=== PATIENT | female | born 1985 | race Caucasian/White ===

== ENCOUNTER 2024-06-14 11:01 | Emergency (ER) | payer BC, SELFPAY ==
[2024-06-14 11:10] VITALS: BP 111/72
[2024-06-14 12:19] VITALS: BP 114/78
--- NOTE | 2024-06-14 12:48 | ED.GENMED ---
History of Present Illness
General
Chief Complaint: Problems
Source: patient
Time Seen by Provider: 06/14/24 12:36
History of Present Illness
History of Present Illness:
39-year-old female presents to the emergency room for evaluation of vaginal spotting and bleeding as well as pelvic cramping. Patient had the symptoms yesterday the day before. Today she has not experienced any bleeding or cramping but did have
some pain in her left shoulder. No dizziness. No significant abdominal pain at this time. No nausea or vomiting. Patient is G2, P1. Uncomplicated first . Patient believes her blood type is B+
Phy Exam
Physical Exam
Physical Exam:
General: Awake, Alert, Oriented X3. No acute distress.
Vitals: unremarkable
Head: Atraumatic
Eyes: Pupils equal, EOMI
Throat: Airway intact, no exudates
Neck: Trachea midline
Lungs: Clear and equal b/l
Heart: Regular rate, no murmurs
Abd: Soft, Nontender, No pulsatile mass
Neuro: Nonfocal
Skin: Warm, dry, no rash
Extremities: pulses equal b/l, no edema
Course
Orders/Labs/Results
Orders:
Orders
06/14/24 11:19
EKG [Electrocardiogram (*1)] Urgent
Reason for Study: Other
Other Reason for Exam: L shoulder pain
EKG- Treatment ONCE
06/14/24 12:46
US W Transvaginal Urgent
Reason For Exam: bleeding/crampy 6 weeks by dates
06/14/24 13:04
Type+Screen Urgent
BBK Wristband Number:
Beta HCG Quantitative Urgent
Is this a screen?: No
Vital Signs
Initial and Last Documented VS:
Initial Vital Signs
Temp Pulse Resp BP Pulse Ox
98.6 F 84 18 111/72 100
06/14/24 11:10 06/14/24 11:10 06/14/24 11:10 06/14/24 11:10 06/14/24 11:10
Last Documented Vital Signs
Temp Pulse Resp BP Pulse Ox
98.6 F 72 16 114/78 98
06/14/24 11:10 06/14/24 12:19 06/14/24 12:19 06/14/24 12:19 06/14/24 12:19
Information
Weeks gestation: Weeks:
Location: Location: (empty uterus)
MDM/Problems Addressed
Differential Diagnosis Includes:
Ectopic, spontaneous , incomplete , normal IUP
MDM/Problems Addressed:
Patient has a benign abdominal exam. Ultrasound showed an empty uterus. The patient's quantitative hCG is 7. There was no indirect evidence for an ectopic on ultrasound. Given her very low hCG I think this is almost certainly completed
spontaneous . Patient is stable for discharge. 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
*Radiology
Radiology exam reviewed: radiology read reviewed
*Critical Care Note
Total Time (30-74mins, 75-104mins- exclusive of procedures): Not Applicable
ED Attending Note
-
Portions of this chart may have been created with voice recognition software.� Occasional wrong word or��sound alike� substitutions may have occurred due to the inherent limitations of voice recognition software.
Discharge Plan
Departure
Patient Disposition: Home (Routine Discharge)
Date of Disposition: 06/14/24
Time of Disposition: 14:24
Patient with high blood pressure during this ER visit?: No
Condition: Good
Discharge Problem:
Spontaneous
Instructions: Miscarriage (DC)
Prescriptions:
No Action
1 mg Tablet
1 tab PO DAILY
Referrals:
UNKNOWN - PT DOES,NOT KNOW [Family Provider] -
Activity Restrictions/Additional Instructions:
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
Interventions
Interventions:
*Risk Screen - Suicide Last Done: 06/14/24 12:19
*General Assessment Last Done: 06/14/24 11:10
*Neglect/Abuse Screening Last Done: 06/14/24 12:19
ED- Fall Risk Assessment Last Done: 06/14/24 12:19
*ED COVID-19 Vaccine History Last Done: 06/14/24 11:15
*Nursing Disposition Last Done: 06/14/24 14:30
ED-Female Genitourinary Assessment Last Done: 06/14/24 12:19
Discharge Date and Time
Discharge Date/Time: 06/14/24 14:30
Print Language: FRISIAN
[2024-06-14 13:43] LABS: Beta HCG Quantitative 7.18 mIU/ml
== END 2024-06-14 14:30 | disposition home or self-care (01) ==
LOC: EMR 11:01
PROVIDERS: EMERGENCY PHYSICIAN Emergency Medicine
DX: O03.9 Complete or unspecified spontaneous abortion without complication (principal)
CPT/HCPCS: 99284; 76801; 76817; 84702; 86850; 86900; 86901; 93005